=== PATIENT | male | born 1965 | race Caucasian/White ===

== ENCOUNTER → 2024-04-08 | Outpatient (CLI) | payer SELFPAY ==
--- NOTE | 2024-04-08 10:50 | RAD_ITS ---
STUDY: X-RAY - RIGHT HAND REASON FOR EXAM: Male, 59 years old. Pain in right hand. No previous injury. Pain in anatomical snuffbox area. No visible bruising or swelling. TECHNIQUE: 3 views of the right hand. COMPARISON: None. FINDINGS: Normal radiocarpal articulation. Normal distal radioulnar joint. Normal visualized carpal bones. Normal carpal articulations. Normal carpometacarpal articulation of the thumb. Normal second through fifth carpometacarpal joints. Normal metacarpi. Normal metacarpophalangeal joint of the thumb. Normal interphalangeal joint of the thumb. Normal proximal and distal phalanges of the thumb. Normal metacarpophalangeal joints of the second through fifth fingers. Normal proximal and distal interphalangeal joints of the second through fifth fingers. Normal phalanges of the second through fifth fingers. The soft tissue structures are unremarkable. RAD/Hand Min 3 Views IMPRESSION: Normal x-ray examination of the right hand. Electronically Signed: Alex Robbins MD at 15:16 EST ,
== END | disposition home or self-care (01) ==
PROVIDERS: PCP Family Medicine; Referring Provider Surgery Plastic and Reconstructive Surgery; Visit Provider Surgery Plastic and Reconstructive Surgery
DX: R52 Pain, unspecified (principal)
CPT/HCPCS: 73130

== ENCOUNTER → 2024-09-06 | Outpatient (CLI) | payer SELFPAY ==
--- NOTE | 2024-09-06 10:03 | VDLE_ITS ---
Reason For Study Reason For Study: Bilateral leg swelling RIGHT LEFT GSV is normal. GSV is normal. CFV is compressible, spontaneous, phasic, competent CFV is compressible, spontaneous, phasic, competent, and demonstrates normal augmentation. and demonstrates normal augmentation. FV prox-mid is partially compressible with venous FV is compressible, phasic, and INCOMPETENT for flow noted. It is INCOMPETENT for greater than 1 greater than 1.0 second. second. POP V is compressible, spontaneous, phasic, competent FV distal is partially NONCOMPRESSIBLE with minimal and demonstrates normal augmentation. venous flow noted. T/P Trunk is partially comrpessible with bright PopV is partially comrpessible with venous flow intraluminal echoes consistent with Chronic DVT. noted. PTV is compressible. T/P Trunk is partially compressible with venous flow LT PerV is compressible. ntoed. Bright intraluminal echoes consistent with Chronic DVT. GastrocV is partially compressible with bright intraluminal echoes consistent with Chronic DVT. PTV is compressible. RT PerV is compressible. Procedure This is a venous duplex using B-mode, color flow and spectral Doppler. Exam performed in department. A preliminary report was called and/or faxed to Lizeth FAGAN. VL/Venous Duplex US - Abraham Extrem Interpretation Summary Chronic deep vein thrombosis noted in the right femoral vein, popliteal vein, t ibioperoneal trunk vein, gastrocnemius vein. Chronic deep vein thrombosis noted in the left tibioperoneal trunk vein. Positive for reflux in the right femoral vein. Positive for reflux in the left femoral vein. Ordering Physician: Cony Stanley Referring Physician: Héctor Coronel MD Performed By: Sylvia Mendoza RVT
== END | disposition home or self-care (01) ==
PROVIDERS: PCP Family Medicine; Referring Provider Physician Assistant; Visit Provider Physician Assistant
DX: D68.9 Coagulation defect, unspecified (principal); I82.401 Acute embolism and thrombosis of unspecified deep veins of right lower extremity; Z86.718 Personal history of other venous thrombosis and embolism; M79.89 Other specified soft tissue disorders
CPT/HCPCS: 93970